=== PATIENT | female | born 1960 | race Caucasian/White ===

== ENCOUNTER 2019-09-26 13:29 | Emergency (ER) | payer OTHER, SELFPAY ==
[2019-09-26 13:37] VITALS: BP 127/85; PULSE 95; RESP 16; TEMP 37.1; O2SAT 99
--- NOTE | 2019-09-26 13:46 | ED.UPPEXIN ---
HPI - Extremity Injury (Upper) General Chief Complaint: Upper Respiratory Infection Stated Complaint: Ear/Nose/Throat Time Seen by Provider: 09/26/19 13:47 Source: patient and RN notes reviewed History of Present Illness HPI narrative: Patient is a 58-year-old female who presents the urgent care with complaints of intermittent dizziness and bilateral ear fullness. Patient states that it started last Friday and she has been using antihistamines, decongestants and Flonase nasal spray with mild improvement. Patient states that she did a somersault maneuver for vertigo which caused her to vomit. Patient states that she does see an ENT at [facility] and has had to have fluid drained from the areas several times in the past. Patient states that it occurred so often that they contemplated putting tubes in her ears. Patient states that the symptoms seem a very similar. Denies of any headaches or blurry vision. No other acute complaints. No acute distress noted. Patient read the plan of care. Related Data Home Medications Medication Instructions Recorded Confirmed cyanocobalamin-cobamamide [B12] adam SUBLINGUAL 09/26/19 eluxadoline [Viberzi] mg 09/26/19 ergocalciferol (vitamin D2) 09/26/19 estradiol 09/26/19 fluticasone propionate [Flonase 1 spray INTRANASAL BID 09/26/19 09/26/19 Allergy Relief] Allergies Allergy/AdvReac Type Severity Reaction Status Date / Time No Known Allergies Allergy Unverified 12/18/15 08:16 Review of Systems Review of Systems: Narrative: CONSTITUTIONAL: Denies fever, chills, or sweats. EYES: Denies visual changes, redness, or discharge. ENT: Reports of bilateral ear fullness CARDIOVASCULAR: Denies chest pain, palpitations, or edema. RESPIRATORY: Denies cough or dyspnea. GASTROINTESTINAL: Denies abdominal pain, nausea, vomiting, or diarrhea. GENITOURINARY: Denies dysuria or hematuria. SKIN: Denies rash or itching. MUSCULOSKELETAL: Denies back pain, joint pain, or myalgia. NEUROLOGIC: Reports of dizziness All other systems reviewed are negative, except as documented in HPI. PMFSH Comments At the time of my signature, I reviewed and agree with the nursing past medical, surgical, social, and family history. There is no relevant family history pertinent to the patient complaint. Exam Narrative: Exam Narrative: GENERAL: This is a well-nourished, well-developed patient, in no apparent distress. HEAD: normocephalic, atraumatic. EYES: PERRL. Sclera clear/white. Vision is grossly intact. EARS: External ears normal, auditory canals clear and without drainage, mild fluid noted behind the right TM without otitis, left TM normal without perforation. Hearing grossly intact. NOSE: External nose normal with no obvious nasal discharge, nares without redness, no rhinorrhea. THROAT: Mucous membranes moist NECK: Neck supple CARDIOVASCULAR: Regular rate and rhythm without murmurs, gallops, or rubs. RESPIRATORY: Clear to auscultation. Breath sounds equal bilaterally. No wheezes, rales, or rhonchi. SKIN: warm, intact with no suspicious lesions or rash, good texture and turgor. NEURO: awake, alert, and oriented to person, place and time. There were no obvious focal neurologic abnormalities. Mild dizziness with head turning motion. EXTREMITIES: No clubbing, cyanosis, or edema. Course Vital Signs Vital signs: Vital Signs Temperature 98.8 F 09/26/19 13:37 Pulse Rate 95 09/26/19 13:37 Respiratory Rate 16 09/26/19 13:37 Blood Pressure 127/85 09/26/19 13:37 Pulse Oximetry 99 09/26/19 13:37 Temperature 98 F 09/26/19 13:47 Pulse Rate 62 09/26/19 13:47 Respiratory Rate 16 09/26/19 13:47 Blood Pressure 163/58 H 09/26/19 13:47 Pulse Oximetry 99 09/26/19 13:37 Reviewed MDM - Extremity Injury (Upper) MDM Narrative Medical decision making narrative: Advised the patient to complete steroid regimen as prescribed. Continue to use Flonase daily. Do not put anything in the ears such as
[2019-09-26 13:47] VITALS: BP 163/58; PULSE 62; RESP 16; TEMP 36.6
--- NOTE | 2019-09-26 14:23 | SUR.HOLD ---
First set of vital signs were entered incorrectly
== END 2019-09-26 14:26 | disposition home or self-care (01) ==
PROVIDERS: Emergency Provider Nurse Practitioner Family; PCP Internal Medicine
DX: R42 Dizziness and giddiness (principal)
CPT/HCPCS: 99213; G0463